=== PATIENT | male | born 1940 | race Caucasian/White ===

== ENCOUNTER 2022-12-01 16:46 | Emergency (ER) | payer MEDICARE, BC ==
[2022-12-01 18:32] LABS: BASOPHILS PERCENT AUTO 0.5 % (0.0-1.0); EOSINOPHILS ABSOLUTE AUTO 0.2 K/mm3 (0.0-0.4); EOSINOPHILS PERCENT AUTO 2.8 % (0.0-6.0); HEMATOCRIT 33.6 % (42.0-52.0); HEMOGLOBIN 11.2 gm/dl (14.0-18.0); IMMATURE GRAN ABSOLUTE AUTO 0.02 K/mm3 (0.00-0.05); IMMATURE GRAN PERCENT AUTO 0.2 % (0.0-0.4); LYMPHOCYTES ABSOLUTE AUTO 0.7 K/mm3 (1.0-4.8); LYMPHOCYTES PERCENT AUTO 8.6 % (24.0-44.0); MEAN CORPUSCULAR HEMOGLOBIN 30.6 pg (28.0-32.0); MEAN CORPUSCULAR HGB CONC 33.3 g/dl (32.0-36.0); MEAN CORPUSCULAR VOLUME 91.8 fl (83.0-99.0); MEAN PLATELET VOLUME 9.5 fl (9.4-12.4); MONOCYTES ABSOLUTE AUTO 0.6 K/mm3 (0.0-0.8); MONOCYTES PERCENT AUTO 6.8 % (0.0-8.0); NEUTROPHILS ABSOLUTE AUTO 6.9 K/mm3 (1.8-7.7); NEUTROPHILS PERCENT AUTO 81.1 % (41.0-71.0); PLATELET COUNT,PLT 192 K/mm3 (150-400); RED BLOOD CELL COUNT 3.66 M/mm3 (4.52-5.90); WHITE BLOOD CELL COUNT,WBC 8.48 K/mm3 (3.9-11.3)
[2022-12-01 19:07] LABS: A/G RATIO 0.9 (1-2); ALBUMIN 3.4 g/dl (3.4-5.0); ANION GAP 16.5 (5-15); BILIRUBIN TOTAL 0.3 mg/dL (0.2-1.0); BUN/CREATININE RATIO 28.5 (14-18); CALCIUM 9.1 mg/dL (8.5-10.1); CREATININE 1.3 mg/dL (0.7-1.3); EST CRCL DRUG DOSING (CG) 44.57 mL/min; POTASSIUM,K 5.5 mEq/L (3.5-5.1); PROTEIN TOTAL,TP 7.1 g/dl (6.4-8.2)
[2022-12-01] MEDS ORDERED: Sodium Chloride 0.9% 500 ML IV ONE (19:27)
[2022-12-01] MEDS ORDERED: Donepezil 10 MG Tab PO SCH (21:00)
[2022-12-01] MEDS ORDERED: LORazepam 2 MG/ML SDV IVPUSH ONE ×2 (21:56→23:23)
[2022-12-01] MEDS ORDERED: QUEtiapine 100 MG Tab PO ONE (22:15)
[2022-12-02] MEDS ORDERED: LORazepam 2 MG/ML SDV IVPUSH ONE ×2 (07:25→13:30)
[2022-12-02] MEDS ORDERED: QUEtiapine 25 MG Tab PO ONE ×2 (07:26→13:30)
[2022-12-02] MEDS ORDERED: LORazepam 2 MG/ML SDV IM ONE (13:54)
[2022-12-02] MEDS ORDERED: LORazepam 2 MG/ML SDV ONE (13:55)
[2022-12-02] MEDS: QUEtiapine 100 MG Tab PO SCH (20:46)
[2022-12-02] MEDS: Folic Acid 1 MG Tab PO SCH (20:47)
[2022-12-02] MEDS: atorvaSTATin 20 MG Tab PO SCH (20:47)
[2022-12-02] MEDS: Cholecalciferol (Vitamin D3) 25 MCG Tab PO SCH (20:48)
[2022-12-02] MEDS: Donepezil 10 MG Tab PO SCH (20:48)
[2022-12-02] MEDS: Thiamine 100 MG Tab PO SCH (20:48)
[2022-12-02] MEDS: Vitamin B6-pyridOXINE 50 MG Tab PO SCH (20:48)
[2022-12-02] MEDS ORDERED: QUEtiapine 100 MG Tab PO SCH ×2 (21:00)
[2022-12-02] MEDS ORDERED: Haloperidol Lactate 5 MG/ML SDV IM ONE (21:51)
[2022-12-03] MEDS ORDERED: LORazepam 2 MG/ML SDV IM ONE (01:26)
[2022-12-03] MEDS: Allopurinol 300 MG Tab PO SCH (08:33)
[2022-12-03] MEDS: Aspirin 81 MG Tab.Chew PO SCH (08:33)
[2022-12-03] MEDS: Lisinopril 20 MG Tab PO SCH (08:34)
[2022-12-03] MEDS: QUEtiapine 25 MG Tab PO SCH (08:34)
[2022-12-03] MEDS: atorvaSTATin 20 MG Tab PO SCH (20:47)
[2022-12-03] MEDS: Folic Acid 1 MG Tab PO SCH (20:47)
[2022-12-03] MEDS: Thiamine 100 MG Tab PO SCH (20:47)
[2022-12-03] MEDS: Cholecalciferol (Vitamin D3) 25 MCG Tab PO SCH (20:47)
[2022-12-03] MEDS: Donepezil 10 MG Tab PO SCH (20:48)
[2022-12-03] MEDS: Vitamin B6-pyridOXINE 50 MG Tab PO SCH (20:48)
[2022-12-03] MEDS: QUEtiapine 100 MG Tab PO SCH (20:48)
[2022-12-04] MEDS: QUEtiapine 25 MG Tab PO SCH (08:18)
[2022-12-04] MEDS: Lisinopril 20 MG Tab PO SCH (08:19)
[2022-12-04] MEDS: Allopurinol 300 MG Tab PO SCH (08:21)
[2022-12-04] MEDS: Aspirin 81 MG Tab.Chew PO SCH (08:22)
[2022-12-04] MEDS: atorvaSTATin 20 MG Tab PO SCH (20:31)
[2022-12-04] MEDS: Folic Acid 1 MG Tab PO SCH (20:31)
[2022-12-04] MEDS: Thiamine 100 MG Tab PO SCH (20:31)
[2022-12-04] MEDS: QUEtiapine 100 MG Tab PO SCH (20:31)
[2022-12-04] MEDS: Vitamin B6-pyridOXINE 50 MG Tab PO SCH (20:32)
[2022-12-04] MEDS: Donepezil 10 MG Tab PO SCH (20:32)
[2022-12-04] MEDS: Cholecalciferol (Vitamin D3) 25 MCG Tab PO SCH (20:32)
[2022-12-05] MEDS ORDERED: LORazepam 2 MG/ML SDV IM ONE (00:54)
[2022-12-05] MEDS: Lisinopril 20 MG Tab PO SCH (09:41)
[2022-12-05] MEDS: QUEtiapine 25 MG Tab PO SCH (09:41)
[2022-12-05] MEDS: Aspirin 81 MG Tab.Chew PO SCH (09:41)
[2022-12-05] MEDS: Allopurinol 300 MG Tab PO SCH (09:42)
== END 2022-12-05 15:00 ==
LOC: JD.ED 16:46
DX: F03.911 Unspecified dementia, unspecified severity, with agitation (principal); D64.9 Anemia, unspecified; E87.5 Hyperkalemia; R45.6 Violent behavior; F29 Unspecified psychosis not due to a substance or known physiological condition; I10 Essential (primary) hypertension; E78.00 Pure hypercholesterolemia, unspecified; Z87.891 Personal history of nicotine dependence; Z88.8 Allergy status to other drugs, medicaments and biological substances; Z79.82 Long term (current) use of aspirin; Z79.899 Other long term (current) drug therapy
CPT/HCPCS: 36415; 80053; 80307; 85025; 96372; 96374; 96376; 99285; A9270; J1630; J2060; J7030; 99284

== ENCOUNTER 2023-10-04 14:50 | Observation (INO) | payer MEDICARE, BC ==
[2023-10-04 15:32] LABS: BASOPHILS PERCENT AUTO 0.1 % (0.0-1.0); EOSINOPHILS PERCENT AUTO 0.2 % (0.0-6.0); HEMATOCRIT 29.5 % (42.0-52.0); HEMOGLOBIN 9.7 gm/dl (14.0-18.0); IMMATURE GRAN ABSOLUTE AUTO 0.07 K/mm3 (0.00-0.05); IMMATURE GRAN PERCENT AUTO 0.4 % (0.0-0.4); LYMPHOCYTES ABSOLUTE AUTO 0.5 K/mm3 (1.0-4.8); LYMPHOCYTES PERCENT AUTO 2.9 % (24.0-44.0); MEAN CORPUSCULAR HGB CONC 32.9 g/dl (32.0-36.0); MEAN CORPUSCULAR VOLUME 91.3 fl (83.0-99.0); MEAN PLATELET VOLUME 11.1 fl (9.4-12.4); MONOCYTES ABSOLUTE AUTO 1.1 K/mm3 (0.0-0.8); MONOCYTES PERCENT AUTO 6.7 % (0.0-8.0); NEUTROPHILS ABSOLUTE AUTO 15.2 K/mm3 (1.8-7.7); NEUTROPHILS PERCENT AUTO 89.7 % (41.0-71.0); PLATELET COUNT,PLT 122 K/mm3 (150-400); RED BLOOD CELL COUNT 3.23 M/mm3 (4.52-5.90); WHITE BLOOD CELL COUNT,WBC 16.97 K/mm3 (3.9-11.3)
[2023-10-04 16:00] LABS: A/G RATIO 0.8 (1-2); ALBUMIN 3.1 g/dl (3.4-5.0); ANION GAP 16.5 (5-15); BILIRUBIN TOTAL 0.7 mg/dL (0.2-1.0); C-REACTIVE PROTEIN 11.34 mg/dL (<0.30); CALCIUM 8.8 mg/dL (8.5-10.1); CREATININE 1.3 mg/dL (0.7-1.3); EST CRCL DRUG DOSING (CG) 40.96 mL/min; MAGNESIUM 1.7 mg/dL (1.8-2.4); POTASSIUM,K 3.5 mEq/L (3.5-5.1); PROTEIN TOTAL,TP 6.8 g/dl (6.4-8.2)
[2023-10-04] MEDS: cefTRIAXone 2 GM in Sodium Chloride 0.9% 100 ML IV ONE (17:00)
[2023-10-04 17:24] LABS: BUN/CREATININE RATIO 28.5 (14-18)
[2023-10-04] MEDS: Sodium Chloride 0.9% 10 ML Syringe FLUSH PRN ×2 (17:26)
[2023-10-04 18:09] LABS: INR 1.13; PROTHROMBIN TIME 11.9 SECONDS (9.7-12.0)
[2023-10-04 18:20] LABS: LACTIC ACID 1.2 mmol/L (0.4-2.0)
[2023-10-04] MEDS ORDERED: Ondansetron 4 MG/2 ML SDV IV PRN (18:29)
[2023-10-04] MEDS ORDERED: Morphine 2 MG/ML SYRINGE IVPUSH PRN (18:29)
[2023-10-04] MEDS ORDERED: Acetaminophen 325 MG Tab PO PRN (18:29)
[2023-10-04] MEDS ORDERED: Naloxone 0.4 MG/ML SDV IVPUSH PRN (18:29)
[2023-10-04] MEDS ORDERED: oxyCODONE 5 MG Tab PO PRN (18:29)
[2023-10-04] MEDS ORDERED: Sennosides/Docusate Sodium 50-8.6 MG Tab PO PRN (18:29)
[2023-10-04 19:19] LABS: IRON,FE 13 ug/dL (65-175); LACTATE DEHYDROGENASE,LDH 191 U/L (85-227); PERCENT FE SATURATION 7 % (20-55); TRANSFERRIN 159 mg/dL (202-364)
[2023-10-04 19:24] LABS: TOTAL IRON BINDING CAPACITY 199 ug/dL (100-400)
[2023-10-04] MEDS: Furosemide 20 MG/2 ML VIAL IVPUSH ONE (20:16)
[2023-10-04] MEDS: ceFAZolin 2 GM in Sodium Chloride 0.9% 50 ML IV SCH (20:16)
[2023-10-04] MEDS: Nystatin Topical Powder 15 GM Bottle TOP SCH (20:16)
[2023-10-04] MEDS: Doxycycline Monohydrate 100 MG Cap PO SCH (20:17)
[2023-10-04 20:34] LABS: FOLIC ACID 54.9 ng/mL (8.6-58.9)
[2023-10-05 07:13] LABS: BASOPHILS PERCENT AUTO 0.1 % (0.0-1.0); EOSINOPHILS ABSOLUTE AUTO 0.1 K/mm3 (0.0-0.4); EOSINOPHILS PERCENT AUTO 1.1 % (0.0-6.0); HEMATOCRIT 26.7 % (42.0-52.0); IMMATURE GRAN ABSOLUTE AUTO 0.04 K/mm3 (0.00-0.05); IMMATURE GRAN PERCENT AUTO 0.4 % (0.0-0.4); LYMPHOCYTES ABSOLUTE AUTO 0.7 K/mm3 (1.0-4.8); LYMPHOCYTES PERCENT AUTO 6.6 % (24.0-44.0); MEAN CORPUSCULAR HEMOGLOBIN 30.7 pg (28.0-32.0); MEAN CORPUSCULAR HGB CONC 33.7 g/dl (32.0-36.0); MEAN CORPUSCULAR VOLUME 91.1 fl (83.0-99.0); MEAN PLATELET VOLUME 10.6 fl (9.4-12.4); MONOCYTES PERCENT AUTO 8.7 % (0.0-8.0); NEUTROPHILS ABSOLUTE AUTO 9.1 K/mm3 (1.8-7.7); NEUTROPHILS PERCENT AUTO 83.1 % (41.0-71.0); PLATELET COUNT,PLT 122 K/mm3 (150-400); RED BLOOD CELL COUNT 2.93 M/mm3 (4.52-5.90); WHITE BLOOD CELL COUNT,WBC 10.91 K/mm3 (3.9-11.3)
[2023-10-05 07:25] LABS: A/G RATIO 0.7 (1-2); ALBUMIN 2.6 g/dl (3.4-5.0); ANION GAP 12.1 (5-15); BILIRUBIN TOTAL 0.5 mg/dL (0.2-1.0); BUN/CREATININE RATIO 27.7 (14-18); C-REACTIVE PROTEIN 14.12 mg/dL (<0.30); CALCIUM 8.3 mg/dL (8.5-10.1); CREATININE 1.3 mg/dL (0.7-1.3); EST CRCL DRUG DOSING (CG) 40.96 mL/min; MAGNESIUM 1.7 mg/dL (1.8-2.4); PHOSPHORUS 3.4 mg/dL (2.6-4.7); POTASSIUM,K 3.1 mEq/L (3.5-5.1); PROTEIN TOTAL,TP 6.1 g/dl (6.4-8.2)
[2023-10-05] MEDS ORDERED: LORazepam 0.5 MG Tab PO PRN (08:21)
[2023-10-05] MEDS: Magnesium Sulfate/Water 4 GM in Premix Bag 1 BAG IV ONE (09:24)
[2023-10-05] MEDS: Vitamin B6-pyridOXINE 50 MG Tab PO SCH (09:27)
[2023-10-05] MEDS: Cholecalciferol (Vitamin D3) 25 MCG Tab PO SCH (09:27)
[2023-10-05] MEDS: Fish Oil/Omega-3 Fatty Acids 1 Gm Cap PO SCH (09:27)
[2023-10-05] MEDS: Enoxaparin 40 MG/0.4 ML Syringe SUBCUT SCH (09:27)
[2023-10-05] MEDS: Potassium Chloride 20 MEQ Tab.ER PO ONE (09:27)
[2023-10-05] MEDS: atorvaSTATin 20 MG Tab PO SCH (09:29)
[2023-10-05] MEDS: Aspirin 81 MG Tab.EC PO SCH (09:29)
[2023-10-05] MEDS: Allopurinol 300 MG Tab PO SCH (09:29)
[2023-10-05] MEDS: Multivitamin Tab PO SCH (09:30)
[2023-10-05] MEDS: Furosemide 20 MG Tab PO SCH (09:33)
[2023-10-05] MEDS ORDERED: CHLORHEXIDINE GLUCONATE 4% TOP PRN (09:40)
[2023-10-05] MEDS: Sodium Ferric Gluconate Cmplex 250 MG in Sodium Chloride 0.9% 100 ML IV SCH (10:10)
[2023-10-05] MEDS: CHLORHEXIDINE GLUCONATE 4% TOP SCH (10:56)
[2023-10-05] MEDS: Sertraline 50 MG Tab PO SCH (17:04)
[2023-10-05] MEDS: Melatonin 3 MG Tab PO PRN (21:51)
[2023-10-05] MEDS: LORazepam 1 MG Tab PO SCH (21:51)
[2023-10-06 04:50] LABS: BASOPHILS PERCENT AUTO 0.2 % (0.0-1.0); EOSINOPHILS ABSOLUTE AUTO 0.5 K/mm3 (0.0-0.4); EOSINOPHILS PERCENT AUTO 4.1 % (0.0-6.0); HEMOGLOBIN 9.9 gm/dl (14.0-18.0); IMMATURE GRAN ABSOLUTE AUTO 0.06 K/mm3 (0.00-0.05); IMMATURE GRAN PERCENT AUTO 0.5 % (0.0-0.4); LYMPHOCYTES ABSOLUTE AUTO 0.8 K/mm3 (1.0-4.8); LYMPHOCYTES PERCENT AUTO 6.8 % (24.0-44.0); MEAN CORPUSCULAR VOLUME 90.9 fl (83.0-99.0); MEAN PLATELET VOLUME 10.6 fl (9.4-12.4); MONOCYTES ABSOLUTE AUTO 1.1 K/mm3 (0.0-0.8); NEUTROPHILS ABSOLUTE AUTO 9.4 K/mm3 (1.8-7.7); NEUTROPHILS PERCENT AUTO 79.4 % (41.0-71.0); PLATELET COUNT,PLT 155 K/mm3 (150-400); WHITE BLOOD CELL COUNT,WBC 11.85 K/mm3 (3.9-11.3)
[2023-10-06 05:10] LABS: ANION GAP 18.5 (5-15); BUN/CREATININE RATIO 30.8 (14-18); CALCIUM 8.5 mg/dL (8.5-10.1); CREATININE 1.3 mg/dL (0.7-1.3); EST CRCL DRUG DOSING (CG) 40.96 mL/min; MAGNESIUM 2.4 mg/dL (1.8-2.4); POTASSIUM,K 3.5 mEq/L (3.5-5.1)
[2023-10-06] MEDS: Potassium Chloride 20 MEQ Tab.ER PO ONE (09:37)
[2023-10-06] MEDS: OLANZapine 5 MG Tab PO SCH (13:47)
[2023-10-06 14:00] LABS: HEMATOCRIT 30.4 % (42.0-52.0); HEMOGLOBIN 9.8 gm/dl (14.0-18.0); MEAN CORPUSCULAR HEMOGLOBIN 29.4 pg (28.0-32.0); MEAN CORPUSCULAR HGB CONC 32.2 g/dl (32.0-36.0); MEAN CORPUSCULAR VOLUME 91.3 fl (83.0-99.0); MEAN PLATELET VOLUME 10.2 fl (9.4-12.4); PLATELET COUNT,PLT 167 K/mm3 (150-400); RED BLOOD CELL COUNT 3.33 M/mm3 (4.52-5.90); WHITE BLOOD CELL COUNT,WBC 13.56 K/mm3 (3.9-11.3)
[2023-10-06] MEDS: Spironolactone 25 MG Tab PO SCH (16:43)
[2023-10-06] MEDS ORDERED: OLANZapine 5 MG Tab PO SCH (21:00)
== END 2023-10-06 20:05 ==
LOC: JD.ED 14:50 → INTOOBSV 17:35 → JD.MS 17:35
PROVIDERS: ADMIT Student in an Organized Health Care Education/Training Program; ATTEND Student in an Organized Health Care Education/Training Program
DX: L03.115 Cellulitis of right lower limb (principal); L03.116 Cellulitis of left lower limb; I11.0 Hypertensive heart disease with heart failure; I50.9 Heart failure, unspecified; D72.829 Elevated white blood cell count, unspecified; R77.8 Other specified abnormalities of plasma proteins; R94.31 Abnormal electrocardiogram [ECG] [EKG]; D64.9 Anemia, unspecified; D69.6 Thrombocytopenia, unspecified; Z79.82 Long term (current) use of aspirin; Z79.899 Other long term (current) drug therapy; Z88.8 Allergy status to other drugs, medicaments and biological substances
CPT/HCPCS: 36415; 71045; 80048; 80053; 82607; 82746; 83540; 83605; 83615; 83735; 83880; 84100; 84466; 84484; 85025; 85027; 85610; 86140; 87040; 87641; 93005; 93306; 93970; 94761; 96365; 96367; 96372; 96375; 96376; 99285; A9270; G0378; J0690; J0696; J1650; J1940; J2916; J3475; J3490; 93010; 99223; 99232; 99239